=== PATIENT | female | born 1945 | race Caucasian/White ===

== ENCOUNTER 2025-06-23 13:18 | Inpatient (IN) | payer MEDICARE, OTHER ==
[~2025-06-23] VITALS: Ht 162.6 cm; Wt 62.9 kg
[2025-06-23 13:59] LABS: PLATELET COUNT (AUTO) 328 K/uL (150-450); RED BLOOD CELL COUNT(AUTO) 4.85 MIL/uL (4.0-5.2); RED CELL DISTRIBUTION WIDTH 20.9 % (11.5-15.0); WHITE BLOOD COUNT (AUTO) 10.6 K/uL (4.3-11.0)
[2025-06-23 14:08] LABS: CALCIUM, SERUM 9.0 mg/dL (8.5-10.1); CREATININE 1.2 mg/dL (0.6-1.3); SODIUM SERUM 138.0 mmol/L (136-145); UREA NITROGEN, BLOOD 27.0 mg/dL (7-18)
[2025-06-23 14:10] LABS: INR 0.95 (0.91-1.10)
[2025-06-23] MEDS ORDERED: MORPHINE SULFATE INJ 4 MG/ML DISP.SYRIN ONE (15:01)
[2025-06-23] MEDS: MORPHINE SULFATE INJ 4 MG/ML DISP.SYRIN IV ONE (15:10)
[2025-06-23] MEDS ORDERED: SITA1TAB6 PO (16:39)
[2025-06-23] MEDS ORDERED: CLON0.5T4 PO (16:39)
[2025-06-23] MEDS ORDERED: LOSA50TA39 PO (16:39)
[2025-06-23] MEDS ORDERED: METO25CA PO (16:39)
[2025-06-23] MEDS ORDERED: CYAN10006 IM (16:39)
[2025-06-23] MEDS ORDERED: ACET-637 PO (16:39)
[2025-06-23] MEDS ORDERED: ERGO500093 PO (16:39)
[2025-06-23] MEDS ORDERED: ICOS1CAP PO (16:39)
[2025-06-23] MEDS ORDERED: OMEP40CA21 PO (16:39)
[2025-06-23] MEDS ORDERED: DORZ10DR11 EACHEYE (16:39)
[2025-06-23] MEDS ORDERED: EMPA25TA PO (16:39)
[2025-06-23] MEDS ORDERED: AMLO2.5T4 PO (16:39)
[2025-06-23] MEDS ORDERED: TRAM50TA PO (16:39)
[2025-06-23] MEDS ORDERED: ACETAMINOPHEN 325 MG TABLET PO PRN (17:00)
[2025-06-23] MEDS ORDERED: ONDANSETRON HCL/PF 4 MG/2 ML VIAL IVP PRN (17:00)
[2025-06-23] MEDS ORDERED: MAG HYDROX/AL HYDROX/SIMETH 30 ML UDC PO PRN (17:00)
[2025-06-23] MEDS ORDERED: Z GUARD REMEDY 4 OZ OINT TP PRN (17:00)
[2025-06-23] MEDS ORDERED: MAGNESIUM HYDROXIDE 30 ML UDC PO PRN (17:00)
[2025-06-23] MEDS ORDERED: ACETAMINOPHEN ES 500 MG TABLET PO PRN (18:30)
[2025-06-23] MEDS ORDERED: DEXTROSE 50%-WATER 50 ML DISP.SYRIN IV PRN (19:30)
[2025-06-23] MEDS: MORPHINE SULFATE INJ 4 MG/ML DISP.SYRIN IV PRN (19:32)
[2025-06-23] MEDS: BLOOD SUGAR DIAGNOSTIC 1 EACH STRIP VI SCH (19:51)
[2025-06-23 20:00] VITALS: BP 146/70; TEMP 97.5; O2SAT 96
[2025-06-23] MEDS: *INSULIN REGULAR(HUMULIN R)HUM 100 UNIT/ML VIAL SQ PRN (20:33)
[2025-06-23] MEDS: IV NS 0.9% 1,000 ML IV PRN (21:43)
[2025-06-23] MEDS: TRAMADOL HCL 50 MG TABLET PO SCH (22:06)
[2025-06-24] MEDS: INSULIN REGULAR, HUMAN 100 UNIT/ML 3 ML VIAL SQ PRN (06:39)
[2025-06-24 06:46] LABS: PLATELET COUNT (AUTO) 328 K/uL (150-450); RED BLOOD CELL COUNT(AUTO) 4.53 MIL/uL (4.0-5.2); RED CELL DISTRIBUTION WIDTH 21.2 % (11.5-15.0); WHITE BLOOD COUNT (AUTO) 7.8 K/uL (4.3-11.0)
[2025-06-24 07:10] LABS: CALCIUM, SERUM 8.7 mg/dL (8.5-10.1); CREATININE 1.3 mg/dL (0.6-1.3); PHOSPHORUS 3.1 mg/dL (2.5-4.9); SODIUM SERUM 135.0 mmol/L (136-145); UREA NITROGEN, BLOOD 26.0 mg/dL (7-18)
[2025-06-24 08:00] VITALS: BP 126/58; TEMP 98.5; O2SAT 95
[2025-06-24] MEDS: TIMOLOL MAL/DORZOLAM HCL OPHTH 10 ML BOTTLE EACHEYE SCH (08:23)
[2025-06-24] MEDS: LINAGLIPTIN 5 MG TABLET PO SCH (08:23)
[2025-06-24] MEDS: PANTOPRAZOLE 40 MG TABLET.DR PO SCH (08:24)
[2025-06-24] MEDS: AMLODIPINE BESYLATE 2.5 MG TABLET PO SCH (08:24)
[2025-06-24] MEDS: METFORMIN 500 MG TABLET PO SCH (08:24)
[2025-06-24] MEDS: LOSARTAN POTASSIUM 50 MG TABLET PO SCH (08:24)
[2025-06-24] MEDS: EMPAGLIFLOZIN 25 MG TABLET PO SCH (08:24)
[2025-06-24] MEDS: METHOCARBAMOL (500MG) 500 MG TABLET PO SCH (16:26)
[2025-06-24] MEDS: dexaMETHasone SOD PHOSPHATE 10 MG/ML VIAL IV SCH (16:27)
[2025-06-24 16:55] VITALS: BP 114/53; TEMP 98.3; O2SAT 97
[2025-06-24 20:00] VITALS: BP 136/61; TEMP 97.7; O2SAT 95
[2025-06-25 08:00] VITALS: BP 124/64; TEMP 98.4; O2SAT 95
[2025-06-25] MEDS: GABAPENTIN 300 MG CAPSULE PO SCH (08:34)
[2025-06-25] MEDS: TRAMADOL HCL 50 MG TABLET PO PRN (10:58)
[2025-06-25 16:00] VITALS: BP 112/65; TEMP 97.7; O2SAT 96
[2025-06-25 20:00] VITALS: BP 127/57; TEMP 97.5; TEMP 97.7; O2SAT 95; O2SAT 96
[2025-06-26 08:00] VITALS: BP 142/64; TEMP 97.4; O2SAT 96
[2025-06-26] MEDS: DOCUSATE SODIUM 100 MG CAPSULE PO SCH (09:31)
[2025-06-26] MEDS: SENNOSIDES/DOCUSATE SODIUM 1 TAB TABLET PO SCH (09:32)
[2025-06-26] MEDS: POLYETHYLENE GLYCOL 3350 17 GM POWD.PACK PO SCH (09:32)
[2025-06-26] MEDS ORDERED: GABA-532 PO (11:22)
[2025-06-26] MEDS ORDERED: SENN-18 PO (11:24)
[2025-06-26] MEDS ORDERED: DOCU-141 PO (11:24)
[2025-06-26 16:00] VITALS: BP 139/61; TEMP 98; O2SAT 98
[2025-06-28] MEDS ORDERED: ERGOCALCIFEROL (VITAMIN D 2) 50,000 UNIT CAPSULE PO SCH (18:30)
[2025-07-23] MEDS ORDERED: CYANOCOBALAMIN 1,000 MCG/ML VIAL IM SCH (09:00)
== END 2025-06-26 16:30 | DRG 812 ==
LOC: ER 13:32 → MED 17:23
PROVIDERS: ADMIT Internal Medicine; ATTEND Internal Medicine
DX: T80.89XA Other complications following infusion, transfusion and therapeutic injection, initial encounter (principal); G93.89 Other specified disorders of brain; E11.9 Type 2 diabetes mellitus without complications; I10 Essential (primary) hypertension; S34.21XA Injury of nerve root of lumbar spine, initial encounter; M47.26 Other spondylosis with radiculopathy, lumbar region; M79.661 Pain in right lower leg; R79.89 Other specified abnormal findings of blood chemistry; M51.26 Other intervertebral disc displacement, lumbar region; G58.8 Other specified mononeuropathies; M48.061 Spinal stenosis, lumbar region without neurogenic claudication; Z79.891 Long term (current) use of opiate analgesic; Y84.8 Other medical procedures as the cause of abnormal reaction of the patient, or of later complication, without mention of misadventure at the time of the procedure; Y82.8 Other medical devices associated with adverse incidents; Y92.89 Other specified places as the place of occurrence of the external cause; Z87.440 Personal history of urinary (tract) infections
CPT/HCPCS: 36415; 71045-TC; 72131-TC; 72148-TC; 72195-TC; 80048-TC; 82962-TC; 83735-TC; 84100-TC; 85025-TC; 85730-TC; 97110-TC; 97116-TC; 97530-TC; A4223; G0378; J1100; J1815; J2270; J7030